=== PATIENT | male | born 1985 | race Caucasian/White ===

== ENCOUNTER 2019-03-20 23:38 | Emergency (ER) | payer BC ==
[~2019-03-20] VITALS: Ht 165.1 cm; Wt 79.4 kg
--- NOTE | 2019-03-20 23:46 | NUR ---
Patient left without being seen by ER physician.
== END 2019-03-20 23:47 | disposition left against medical advice (07) ==
LOC: ER 23:39
DX: Z53.21 Procedure and treatment not carried out due to patient leaving prior to being seen by health care provider (principal)
CPT/HCPCS: A4663